=== PATIENT | male | born 1980 | race Caucasian/White ===

== ENCOUNTER 2017-05-16 19:58 | Emergency (ER) | payer SELFPAY ==
[2017-05-16] MEDS: DIPHTH/TET/ACEL PERTUSS (ADULT) 0.5 ML VIAL IM (23:10)
[2017-05-16] MEDS: IBUPROFEN 600 MG TAB PO (23:11)
[2017-05-16] MEDS: ACETAMINOPHEN 325 MG TAB PO (23:11)
== END 2017-05-17 00:16 | disposition home or self-care (01) ==
LOC: FTE 05-17 00:16
DX: S01.01XA Laceration without foreign body of scalp, initial encounter (principal); W01.0XXA Fall on same level from slipping, tripping and stumbling without subsequent striking against object, initial encounter; Y92.9 Unspecified place or not applicable; Z23 Encounter for immunization
CPT/HCPCS: 90471; 90715; 99283-25